=== PATIENT | female | born 1990 | race Caucasian/White ===

== ENCOUNTER 2016-09-17 05:33 | Inpatient (IN) | payer BC ==
--- NOTE | 2016-09-16 08:17 | PCM.LDHP ---
L&D History of Present Illness - General Date of Service: 09/16/16 Admit Problem/Dx: Admission Diagnosis/Problem Admission Diagnosis/Problem Source of Information: Patient History Limitations: Reports: No Limitations - History of Present Illness Introduction:: 26-year-old, G4, P2, 012. LUIS 09/22/16. Patient's estimated gestational age on Tuesday09/17/16 is 39 weeks 2 days. Patient is scheduled for repeat section having had 2 prior section. Group B strep negative. Patient has had no problems during this . Blood type A positive, antibody screen negative, on 03/09/16, hemoglobin, lack of 13.3, and 37.7, platelets 2, and 14,000. Rubella immune, nonreactive serology negative, hepatitis B surface antigen, GC and Chlamydia probes were negative. On . Hemoglobin, like a couple 637.2, platelet 174,001 hour OB glucose screen 136 3 hour glucose tolerance test fasting 80, one-hour 151, 2R, 125, 3 hour 71. All within normal range. Group B strep -08/26/16. Patient taking vitamins. No known drug allergies. Improves with: Reports: None Worsens with: Reports: None Associated Symptoms: Reports: N - Related Data Allergies/Adverse Reactions: Allergies Allergy/AdvReac Type Severity Reaction Status Date / Time No Known Allergies Allergy Verified 03/12/15 06:30 Home Medications: Home Meds Vit No.130/Iron/FA [ Tablet] 1 tab PO DAILY 03/12/15 [History] Acetaminophen [Tylenol] 650 mg PO Q6H PRN #50 tablet 03/14/15 [Rx] Acetaminophen/oxyCODONE [Percocet 325-5 MG] 1 tab PO Q6H PRN #20 tablet [Rx] Docusate Sodium [Colace] 100 mg PO Q12H PRN #50 cap 03/14/15 [Rx] Ibuprofen [Motrin] 200 - 800 mg PO Q6H PRN #50 tablet 03/14/15 [Rx] Lanolin [Lansinoh HPA] 1 applic TOP ASDIRECTED PRN #1 tube 03/14/15 [Rx] Simethicone 80 mg PO PCBED #50 tab.chew 03/14/15 [Rx] Past Medical History : 4 Para: 2 (2011) LMP (Approximate): Other OB/BYN History: Csection 2012 - Past Surgical History Other HEENT Surgeries/Procedures: Tonsillectomy 2009. Plastic Surgery on Ears 2004 Social & Family History - Tobacco Use Smoking Status *Q: Never Smoker Second Hand Smoke Exposure: No - Recreational Drug Use Recreational Drug Use: No H&P Review of Systems - Review of Systems: Review Of Systems: See Below General: Reports: No Symptoms HEENT: Reports: No Symptoms Pulmonary: Reports: No Symptoms Cardiovascular: Reports: No Symptoms Gastrointestinal: Reports: No Symptoms Genitourinary: Reports: No Symptoms Musculoskeletal: Reports: No Symptoms Skin: Reports: No Symptoms Psychiatric: Reports: No Symptoms Neurological: Reports: No Symptoms Hematologic/Lymphatic: Reports: No Symptoms Immunologic: Reports: No Symptoms L&D Exam - Exam Exam: See Below - Vital Signs Weight: 208 lb 6.4 oz - OB Specific Fundal Height In cm: 30 Movement: Active Heart Tones: Present Heart Tones per Min: 150 Heart Rate (FHR) Variability: Moderate (6-25 bmp) Presentation: Vertex Estimated Weight: 7.5 - Exam General: Alert, Oriented HEENT: Mucosa Moist & [address] Neck: Supple, Trachea Midline Lungs: Clear to Auscultation, Normal Respiratory Effort Cardiovascular: Regular Rate, Regular Rhythm Abdomen: Normal Bowel Sounds, Soft, Pelvis Stable Genitourinary: Normal external exam Back Exam: Normal Inspection, Full Range of Motion Extremities: Normal Inspection Skin: Warm, Dry, Intact Psychiatric: Alert, Normal Affect, Normal Mood - Problem List (1) 39 weeks gestation of SNOMED Code(s): 89378021 ICD Code: Z3A.39 - 39 WEEKS GESTATION OF Status: Acute Priority : High (2) Previous delivery affecting , antepartum SNOMED Code(s): 499570197, 797883066 ICD Code: O34.219 - MATERNAL CARE FOR UNSP TYPE SCAR FROM PREVIOUS DEL Status: Acute Priority: High Problem List Initiated/Reviewed/Updated: No Assessment/Plan Comment:: Plan repeat section for/
[~2016-09-17 05:33] MED LIST: Citric Acid/Sodium Citrate Solution 30 ML Cup PO ONE; Metoclopramide 10 MG/2 ML SDV IVPUSH ONE; Oxytocin/Lactated Ringers 10 UNIT/1,000 ML BAG IV SCH; Sodium Chloride 0.9% 10 ML Syringe FLUSH PRN; ceFAZolin 2 GM in Premix Bag 1 BAG IV ONE
[2016-09-17] MEDS ORDERED: Citric Acid/Sodium Citrate Solution 30 ML Cup ONE (05:47)
[2016-09-17] MEDS ORDERED: Metoclopramide 10 MG/2 ML SDV ONE (05:47)
[2016-09-17] MEDS: Lactated Ringers 1,000 ML IV SCH ×2 (06:15→06:50)
[2016-09-17] MEDS ORDERED: Bupivacaine 0.5% 30 ML SDV ONE (06:36)
[2016-09-17] MEDS ORDERED: Oxytocin 10 Units/1 ML SDV ONE (06:47)
[2016-09-17] MEDS ORDERED: Ondansetron 4 MG/2 ML SDV ONE ×2 (06:47→10:28)
[2016-09-17] MEDS ORDERED: ceFAZolin 1 GM Vial ONE ×2 (06:47→10:05)
[2016-09-17] MEDS ORDERED: Morphine PF 10 MG/10 ML SDV ONE (06:48)
[2016-09-17] MEDS ORDERED: Lactated Ringers 1,000 ML ONE ×2 (06:48→10:49)
--- NOTE | 2016-09-17 07:03 | PCM.PREANE ---
Preanesthetic Assessment - Procedure Proposed Procedure: section - Anesthesia/Transfusion/Family Hx Anesthesia History: Prior Anesthesia Reaction Type of Anesthesia Reaction: Excessive Nausea/Vomiting Family History of Anesthesia Reaction: No Transfusion History: No Prior Transfusion(s) - Review of Systems General: No Symptoms Pulmonary: No Symptoms Cardiovascular: No Symptoms Gastrointestinal: Other (Slight reflux) Neurological: No Symptoms Other: Reports: None - Physical Assessment NPO Status Date: 09/16/16 NPO Status Time: 23:00 Pulse: 86 O2 Sat by Pulse Oximetry: 82 Respiratory Rate: 16 Blood Pressure: 128/91 Temperature: 96.9 C Height: 1.57 m Weight: 91.626 kg ASA Class: 2 Mental Status: Alert & Oriented x3 Dentition: Reports: Normal Dentition Thyro-Mental Finger Breadths: 3 Mouth Opening Finger Breadths: 3 ROM/Head Extension: Full Lungs: Clear to auscultation, Normal respiratory effort Cardiovascular: Regular Rate, Regular Rhythm, No Murmurs - Lab Values: Laboratory Last Values WBC 11.31 K/mm3 (3.98-10.04) H 09/17/16 05:57 RBC 4.15 M/mm3 (3.98-5.22) 09/17/16 05:57 Hgb 12.6 gm/L (11.2-15.7) 09/17/16 05:57 Hct 37.0 % (34.1-44.9) 09/17/16 05:57 MCV 89.2 fl (79.4-94.8) 09/17/16 05:57 MCH 30.4 pg (25.6-32.2) 09/17/16 05:57 MCHC 34.1 g/dl (32.2-35.5) 09/17/16 05:57 RDW Std Deviation 43.5 fL (36.4-46.3) 09/17/16 05:57 Plt Count 173 K/mm3 (182-369) L 09/17/16 05:57 MPV 10.9 fl (9.4-12.3) 09/17/16 05:57 Neut % (Auto) 70.0 % (34.0-71.1) 09/17/16 05:57 Lymph % (Auto) 20.3 % (19.3-51.7) 09/17/16 05:57 [place] % (Auto) 7.3 % (4.7-12.5) 09/17/16 05:57 Eos % (Auto) 1.7 (0.7-5.8) 09/17/16 05:57 Baso % (Auto) 0.3 % (0.1-1.2) 09/17/16 05:57 Neut # (Auto) 7.93 K/mm3 (1.56-6.13) H 09/17/16 05:57 Lymph # (Auto) 2.30 K/mm3 (1.18-3.74) 09/17/16 05:57 [place] # (Auto) 0.82 K/mm3 (0.24-0.36) H 09/17/16 05:57 Eos # (Auto) 0.19 K/mm3 (0.04-0.36) 09/17/16 05:57 Baso # (Auto) 0.03 K/mm3 (0.01-0.08) 09/17/16 05:57 Lab values reviewed and ok to proceed with planned procedure - Allergies Allergies/Adverse Reactions: Allergies Allergy/AdvReac Type Severity Reaction Status Date / Time No Known Allergies Allergy Verified 09/17/16 06:51 - Acknowledgements Anesthesia Type Planned: Spinal Pt an Appropriate Candidate for the Planned Anesthesia: Yes Alternatives and Risks of Anesthesia Discussed w Pt/Guardian: Yes Pt/Guardian Understands and Agrees with Anesthesia Plan: Yes 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 Plastic Surgery on Ears 2004 - SUBSTANCE USE Smoking Status *Q: Never Smoker Second Hand Smoke Exposure: No Days Per Week of Alcohol Use: 0 Number of Drinks Per Day: 0 Total Drinks Per Week: 0 Recreational Drug Use History: No - HOME MEDS Home Medications: Home Meds Vit No.130/Iron/FA [ Tablet] 1 tab PO DAILY 03/12/15 [History] - CURRENT (IN HOUSE) MEDS Current Meds: Current Medications Lactated Ringer's (Ringers, Lactated) 1,000 mls @ 125 mls/hr IV ASDIRECTED GABINO Last Admin: 09/17/16 06:50 Dose: 125 mls/hr Oxytocin/Lactated Ringer's (Pitocin In Lr 10 Units/1,000 Ml) 10 unit in 1,000 mls @ 100 mls/hr IV ASDIRECTED GABINO Sodium Chloride (Saline Flush) 10 ml FLUSH ASDIRECTED PRN PRN Reason: Keep Vein Open Discontinued Medications Bupivacaine HCl (Marcaine 0.5%) Confirm Administered Dose 30 ml .ROUTE .STK-MED ONE Stop: 09/17/16 06:37 Cefazolin Sodium (Ancef) Confirm Administered Dose 2 gm .ROUTE .STK-MED ONE Stop: 09/17/16 06:48 Citric Acid/Sodium Citrate (Bicitra Solution) 30 ml PO ONETIME ONE Stop: 09/17/16 02:28 Last Admin: 09/17/16 06:54 Dose: 30 ml Citric Acid/Sodium Citrate (Bicitra Solution) Confirm Administered Dose 30 ml .ROUTE .STK-MED ONE Stop: 09/17/16 05:48 Cefazolin Sodium/Dextrose 2 gm (/ Premix) 50 mls @ 100 mls/hr IV ONETIME ONE Stop: 09/17/16 02:59 Lactated Ringer's (Ringers, Lactated) Confirm Administered Dose 1,000 mls @ as directed .ROUTE .STK-MED ONE Stop: 09/17/16 06:49 Metoclopramide HCl (Reglan) 10 mg IVPUSH ONETIME ONE Stop: 09/17/16 02:28 Last Admin: 09/17/16 06:53 Dose: 10 mg Metoclopramide HCl (Reglan) Confirm Administered Dose 10 mg .ROUTE .STK-MED ONE Stop: 09/17/16 05:48 Morphine Sulfate (Duramorph Pf) Confirm Administered Dose 10 mg .ROUTE .STK-MED ONE Stop: 09/17/16 06:49 Ondansetron HCl (Zofran) Confirm Administered Dose 4 mg .ROUTE .STK-MED ONE Stop: 09/17/16 06:48 Oxytocin (Pitocin) Confirm Administered Dose 20 unit .ROUTE .STK-MED ONE Stop: 09/17/16 06:48
[2016-09-17] MEDS ORDERED: Phenylephrine/Normal Saline 100 MCG/ML 10 ML Syringe ONE ×2 (08:00→10:21)
[2016-09-17] MEDS ORDERED: Ketorolac 30 MG/ML SDV ONE (08:18)
--- NOTE | 2016-09-17 08:22 | PCM.OPNOTE ---
- General Post-Op/Procedure Note Date of Surgery/Procedure: 09/17/16 Operative Procedure(s): Repeat low segment transverse 97829 Pre Op Diagnosis: 39+ weeks gestation, previous , x2 Post-Op Diagnosis: Same Anesthesia Technique: Spinal Primary Surgeon: Sixto Chandra Secondary Surgeon: Denny Arrieta Anesthesia Provider: Kalee Gilliland Lace Paper Machine Operator: Jennifer Graf (CRNAs) Fluid Replacement, Intraop: 1,700 Output, Urine Amount: 100 EBL in mLs: 300 Drain/Tube Comments:: Merino catheter to gravity drainage, closed system Complications: None Condition: Good Free Text/Narrative:: Patient was transported to operating room #1 and placed under spinal anesthesia in supine position with wedge under the right hip and right flank. Prepared and draped in sterile fashion including vaginal prep and abdominal prep timeout performed confirming name, date of , and procedures repeat section. SCDs in place and prepped, and prior surgery. Ancef 2 g given intravenously, prior surgery. Confirming adequate level of anesthesia, limbal brought to the operating room, injecting 20 mL of 0.5% Marcaine and area of the planned incision and incision made and carried sharp section to into the anterior fascia. The cavity entered without difficulty. Bladder flap created pushed caudad and a low segment transverse performed, very thin lower uterine segment. ( No window.) , Female live born at 0752 hours, weighing 6 pounds, 14 ounces. /9. , Dr. Schmidt . Hospital Plan Administrator, attended to the . Cord clamp. Cord blood collected. Placenta removed manually, and the nature cavity inspected. Sponge, needle, pack, and splint sharp count correct, times one. Uterine incision closed with running, locking suture of #0 Monocryl, followed by a Lembert imbricating suture of 0 Monocryl. Arterial bleeder on the left side, resutured with additional [id number] suture. No bleeding. At the end of the procedure. Both tubes and ovaries were normal. Clots cleaned from the gutters and cul-de-sac. Uterus replaced into the abdominal cavity. Incision inspected. No bleeding, and sponge, needle, pack, and splint sharp count correct, x2. The abdominal cavity was closed with running, locking suture of #1 PDS. Irrigation carried out on the subcutaneous tissue. Utilizing the electrocautery relaxing incisions made inferiorly and superiorly to relax. The skin incision and the skin was closed subcuticular 3- 0. Richy needle, and Preneo dermabond applied. Cleaned from the vagina. Urine clear, and yellow at, and procedure an. Patient transported post anesthesia care unit in satisfactory condition. No blood transfusions, required none are anticipated
[2016-09-17] MEDS ORDERED: Ondansetron 4 MG/2 ML SDV IVPUSH PRN (08:32)
[2016-09-17] MEDS ORDERED: diphenhydrAMINE 50 MG/ML SDV IVPUSH PRN (08:32)
[2016-09-17] MEDS ORDERED: Meperidine PF 50 MG/ML Syringe IM PRN (08:32)
--- NOTE | 2016-09-17 08:35 | PCM.POSTAN ---
POST ANESTHESIA ASSESSMENT - MENTAL STATUS Mental Status: alert, oriented - VITAL SIGNS Pulse Rate: 82 SaO2: 98 Resp Rate: 22 Blood Pressure: 131/87 Temperature: 37.1 C - RESPIRATORY Respiratory Status: respiratory rate WNL, airway patent - CARDIOVASCULAR CV Status: pulse rate WNL, blood pressure stable - GASTROINTESTINAL GI Status: no symptoms - PAIN Pain Score: 0 - POST OP HYDRATION Hydration Status: adequate & stable
[2016-09-17] MEDS ORDERED: Naloxone 0.4 MG/ML SDV IVPUSH PRN (11:38)
[2016-09-17] MEDS ORDERED: Lanolin 100% Cream 7 GM Tube TOP PRN (11:38)
[2016-09-17] MEDS ORDERED: ePHEDrine 50 MG/ML SDV IVPUSH PRN (11:38)
[2016-09-17] MEDS ORDERED: Acetaminophen 325 MG Tab PO PRN (11:38)
[2016-09-17] MEDS ORDERED: Docusate Sodium 100 MG Cap PO PRN (11:38)
[2016-09-17] MEDS ORDERED: Dextrose 5%-0.45% NaCl 1,000 ML IV SCH (11:45)
[2016-09-17] MEDS ORDERED: Dextrose 5%-Lactated Ringers 1,000 ML IV SCH (11:45)
[2016-09-17] MEDS: Ketorolac 30 MG/ML SDV IVPUSH SCH ×2 (14:29→20:25)
[2016-09-18] MEDS: Ketorolac 30 MG/ML SDV IVPUSH SCH (02:04)
[2016-09-18] MEDS ORDERED: Ibuprofen 600 MG Tab PO PRN (08:00)
[2016-09-18] MEDS: Acetaminophen/oxyCODONE 325-5 MG Tab PO PRN ×3 (10:35→20:37)
--- NOTE | 2016-09-18 11:01 | PCM.SN ---
- Free Text/Narrative Note: PPD#1 Afebrile, no heavy vaginal bleeding, incision healing normally, no leg cramps. Ambulating
[2016-09-19] MEDS: Acetaminophen/oxyCODONE 325-5 MG Tab PO PRN ×2 (03:47→11:18)
[2016-09-19] MEDS: Labetalol 100 MG Tab PO SCH ×2 (04:41→08:30)
[2016-09-19 07:47] VITALS: BP 132/78
--- NOTE | 2016-09-19 10:06 | PCM.DCSUM1 ---
Discharge Summary - Hospital Course Free Text/Narrative:: [facility] Post-Op/Procedure Note Patient Name: EMANUEL MASTERS Date of : 89 Patient Status: Inpatient Attending Provider: Sixto Chandra Date: 09/17/16 08:16 Initialization Date: 09/17/16 08:16 - General Post-Op/Procedure Note Date of Surgery/Procedure: 09/17/16 Operative Procedure(s): Repeat low segment transverse 42349 Pre Op Diagnosis: 39+ weeks gestation, previous , x2 Post-Op Diagnosis: Same Anesthesia Technique: Spinal Primary Surgeon: Sixto Chandra Secondary Surgeon: Denny Arrieta Anesthesia Provider: Kalee Gilliland Chop Saw Operator: Jennifer Graf (CRNAs) Fluid Replacement, Intraop: 1,700 Output, Urine Amount: 100 EBL in mLs: 300 Drain/Tube Comments:: Merino catheter to gravity drainage, closed system Complications: None Condition: Good Free Text/Narrative:: Patient was transported to operating room #1 and placed under spinal anesthesia in supine position with wedge under the right hip and right flank. Prepared and draped in sterile fashion including vaginal prep and abdominal prep timeout performed confirming name, date of , and procedures repeat section. SCDs in place and prepped, and prior surgery. Ancef 2 g given intravenously, prior surgery. Confirming adequate level of anesthesia, limbal brought to the operating room, injecting 20 mL of 0.5% Marcaine and area of the planned incision and incision made and carried sharp section to into the anterior fascia. The cavity entered without difficulty. Bladder flap created pushed caudad and a low segment transverse performed, very thin lower uterine segment. ( No window.) , Female live born at 0752 hours, weighing 6 pounds, 14 ounces. 01/01. , Dr. Schmidt . Transition Coach, attended to the . Cord clamp. Cord blood collected. Placenta removed manually, and the nature cavity inspected. Sponge, needle, pack, and splint sharp count correct, times one. Uterine incision closed with running, locking suture of #0 Monocryl, followed by a Lembert imbricating suture of 0 Monocryl. Arterial bleeder on the left side, resutured with additional [id number] suture. No bleeding. At the end of the procedure. Both tubes and ovaries were normal. Clots cleaned from the gutters and cul-de-sac. Uterus replaced into the abdominal cavity. Incision inspected. No bleeding, and sponge, needle, pack, and splint sharp count correct, x2. The abdominal cavity was closed with running, locking suture of #1 PDS. Irrigation carried out on the subcutaneous tissue. Utilizing the electrocautery relaxing incisions made inferiorly and superiorly to relax. The skin incision and the skin was closed subcuticular 3- 0. Richy needle, and Preneo dermabond applied. Cleaned from the vagina. Urine clear, and yellow at, and procedure an. Patient transported post anesthesia care unit in satisfactory condition. No blood transfusions, required none are anticipated HPI Initial Comments: [facility] Post-Op/Procedure Note Patient Name: EMANUEL MASTERS Date of : 89 Patient Status: Inpatient Attending Provider: Sixto Chandra Date: 09/17/16 08:16 Initialization Date: 09/17/16 08:16 - General Post-Op/Procedure Note Date of Surgery/Procedure: 09/17/16 Operative Procedure(s): Repeat low segment transverse 56236 Pre Op Diagnosis: 39+ weeks gestation, previous , x2 Post-Op Diagnosis: Same Anesthesia Technique: Spinal Primary Surgeon: Sixto Chandra Secondary Surgeon: Denny Arrieta Anesthesia Provider: Kalee Gilliland Chop Saw Operator: Jennifer Graf (CRNAs) Fluid Replacement, Intraop: 1,700 Output, Urine Amount: 100 EBL in mLs: 300 Drain/Tube Comments:: Merino catheter to gravity drainage, closed system Complications: None Condition: Good Free Text/Narrative:: Patient was transported to operating room #1 and placed under spinal anesthesia in supine position with wedge under the right hip and right flank. Prepared and draped in sterile fashion including vaginal prep and abdominal prep timeout performed confirming name, date of , and procedures repeat section. SCDs in place and prepped, and prior surgery. Ancef 2 g given intravenously, prior surgery. Confirming adequate level of anesthesia, limbal brought to the operating room, injecting 20 mL of 0.5% Marcaine and area of the planned incision and incision made and carried sharp section to into the anterior fascia. The cavity entered without difficulty. Bladder flap created pushed caudad and a low segment transverse performed, very thin lower uterine segment. ( No window.) , Female live born at 0752 hours, weighing 6 pounds, 14 ounces. 01/01. , Dr. Schmidt . Transition Coach, attended to the . Cord clamp. Cord blood collected. Placenta removed manually, and the nature cavity inspected. Sponge, needle, pack, and splint sharp count correct, times one. Uterine incision closed with running, locking suture of #0 Monocryl, followed by a Lembert imbricating suture of 0 Monocryl. Arterial bleeder on the left side, resutured with additional [id number] suture. No bleeding. At the end of the procedure. Both tubes and ovaries were normal. Clots cleaned from the gutters and cul-de-sac. Uterus replaced into the abdominal cavity. Incision inspected. No bleeding, and sponge, needle, pack, and splint sharp count correct, x2. The abdominal cavity was closed with running, locking suture of #1 PDS. Irrigation carried out on the subcutaneous tissue. Utilizing the electrocautery relaxing incisions made inferiorly and superiorly to relax. The skin incision and the skin was closed subcuticular 3- 0. Richy needle, and Preneo dermabond applied. Cleaned from the vagina. Urine clear, and yellow at, and procedure an. Patient transported post anesthesia care unit in satisfactory condition. No blood transfusions, required none are anticipated Brief History: [facility] . Post-Op/Procedure Note. Patient Name: EMANUEL MASTERS [facility] Record Number: [id number]. Date of : Patient Status: Inpatient. Attending Provider: Sixto Chandra Number: [id number]. Date: 09/17/16 08:16Initialization Date: 09/17/16 08:16. - General Post-Op/Procedure Note. Date of Surgery/Procedure: 09/17/16. Operative Procedure(s): Repeat low segment transverse 69282. Pre Op Diagnosis: 39+ weeks gestation, previous , x2. Post-Op Diagnosis: Same. Anesthesia Technique: Spinal. Primary Surgeon: Sixto Chandra. Secondary Surgeon: Denny Arrieta. Anesthesia Provider: Kalee Gilliland. Chop Saw Operator: Jennifer Graf (CRNAs). Fluid Replacement, Intraop: 1,700. Output, Urine Amount: 100. EBL in mLs: 300. Drain/Tube Comments:: Merino catheter to gravity drainage, closed system. Complications: None. Condition: Good. Free Text/Narrative:: Patient was transported to operating room #1 and placed under spinal anesthesia in supine position with wedge under the right hip and right flank. Prepared and draped in sterile fashion including vaginal prep and abdominal prep timeout performed confirming name, date of , and procedures repeat section. SCDs in place and prepped, and prior surgery. Ancef 2 g given intravenously, prior surgery. Confirming adequate level of anesthesia , limbal brought to the operating room, injecting 20 mL of 0.5% Marcaine and area of the planned incision and incision made and carried sharp section to into the anterior fascia. The cavity entered without difficulty. Bladder flap created pushed caudad and a low segment transverse performed, very thin lower uterine segment. ( No window.) , Female live born at 0752 hours, weighing 6 pounds, 14 ounces. 01/01. , Dr. Schmidt . Transition Coach, attended to the . Cord clamp. Cord blood collected. Placenta removed manually, and the nature cavity inspected. Sponge, needle, pack, and splint sharp count correct, times one. Uterine incision closed with running, locking suture of #0 Monocryl, followed by a Lembert imbricating suture of 0 Monocryl. Arterial bleeder on the left side, resutured with additional [id number] suture. No bleeding. At the end of the procedure. Both tubes and ovaries were normal. Clots cleaned from the gutters and cul-de-sac. Uterus replaced into the abdominal cavity. Incision inspected. No bleeding, and sponge, needle, pack, and splint sharp count correct, x2. The abdominal cavity was closed with running, locking suture of #1 PDS. Irrigation carried out on the subcutaneous tissue. Utilizing the electrocautery relaxing incisions made inferiorly and superiorly to relax. The skin incision and the skin was closed subcuticular 3- 0. Richy needle, and Preneo dermabond applied. Cleaned from the vagina. Urine clear, and yellow at, and procedure an. Patient transported post anesthesia care unit in satisfactory condition. No blood transfusions, required none are anticipated - Discharge Data Discharge Date: 09/19/16 Discharge Disposition: Home, Self-Care 01 Condition: Good - Discharge Diagnosis/Problem(s) (1) 39 weeks gestation of SNOMED Code(s): 02022745 ICD Code: Z3A.39 - 39 WEEKS GESTATION OF Status: Acute Priority : High Current Visit: Yes (2) Previous delivery affecting , antepartum SNOMED Code(s): 271626786, 221488897 ICD Code: O34.219 - MATERNAL CARE FOR UNSP TYPE SCAR FROM PREVIOUS DEL Status: Acute Priority: High Current Visit: No (3) Hypertension, condition or complication SNOMED Code(s): 41899669, 335646527 ICD Code: O16.5 - UNSPECIFIED MATERNAL HYPERTENSION, COMP THE PUERPERIUM Status: Acute Current Visit: Yes - Patient Summary/Data Operative Procedure(s) Performed: Repeat low segment transverse 59662 Complications: none Consults: none Hospital Course: uneventful - Patient Instructions Diet: Heart Healthy Diet Driving: Do Not Drive (x4 weeks) Showering/Bathing: May Shower, No Tub Bathing/Swimming (x6 weeks) Wound/Incision Care: Keep Operative Site/Wound Site Clean and Dry Notify Provider of: Fever, Increased Pain, Swelling and Redness, Drainage, Nausea and/or Vomiting - Discharge Plan Prescriptions/Med Rec: Labetalol [Normodyne] 100 mg PO BID #60 tablet Home Medications: Home Meds Vit No.130/Iron/FA [ Tablet] 1 tab PO DAILY 03/12/15 [History] Acetaminophen [Tylenol] 650 mg PO Q6H PRN #0 tablet 09/19/16 [Rx] Docusate Sodium [Colace] 100 mg PO Q12H PRN #0 cap 09/19/16 [Rx] Ibuprofen [IJD: Ibuprofen] 200 - 600 mg PO Q6H PRN #0 tablet 09/19/16 [Rx] Labetalol [Normodyne] 100 mg PO BID #60 tablet 09/19/16 [Rx] Referrals: Sixto Chandra MD [Physician] - (4 weeks RTC) - Discharge Summary/Plan Comment DC Time >30 min.: No - Patient Data Vitals - Most Recent: Last Vital Signs Temp 97.7 F 09/19/16 07:40 Pulse 88 09/19/16 08:30 Resp 16 09/19/16 07:40 BP 132/78 09/19/16 08:30 Pulse Ox 99 09/19/16 07:40 Weight - Most Recent: 202 lb I&O - Last 24 hours: Intake & Output 09/18/16 09/19/16 09/19/16 22:59 06:59 14:59 Intake Total 0 Balance 0 Med Orders - Current: Current Medications Acetaminophen (Tylenol) 650 mg PO Q4H PRN PRN Reason: mild pain or fever Diphenhydramine HCl (Benadryl) 25 mg IVPUSH Q6H PRN PRN Reason: pruritis Docusate Sodium (Colace) 100 mg PO Q12H PRN PRN Reason: Constipation Last Admin: 09/19/16 08:33 Dose: 100 mg Emollient Ointment (Lansinoh Hpa) 0 gm TOP ASDIRECTED PRN PRN Reason: Sore Nipples Ephedrine Sulfate (Ephedrine Sulfate) 5 mg IVPUSH SEECOMMENT PRN PRN Reason: Other Lactated Ringer's (Ringers, Lactated) 1,000 mls @ 125 mls/hr IV ASDIRECTED [facility] Last Admin: 09/17/16 06:50 Dose: 125 mls/hr Oxytocin/Lactated Ringer's (Pitocin In Lr 10 Units/1,000 Ml) 10 unit in 1,000 mls @ 100 mls/hr IV ASDIRECTED [facility] Dextrose/Sodium Chloride (Dextrose 5%-1/2 Ns) 1,000 mls @ 125 mls/hr IV ASDIRECTED [facility] Ibuprofen (Motrin) 600 mg PO Q6H PRN PRN Reason: mild pain or fever Labetalol HCl (Normodyne) 100 mg PO BID [facility] Last Admin: 09/19/16 08:30 Dose: 100 mg Naloxone HCl (Narcan) 0.1 mg IVPUSH SEECOMMENT PRN PRN Reason: Respiratory Depression Ondansetron HCl (Zofran) 4 mg IVPUSH ONETIME PRN PRN Reason: Nausea/Vomiting Oxycodone/Acetaminophen (Percocet 325-5 Mg) 2 tab PO Q4H PRN PRN Reason: Pain (moderate 4-6) Last Admin: 09/19/16 03:47 Dose: 2 tab Sodium Chloride (Saline Flush) 10 ml FLUSH ASDIRECTED PRN PRN Reason: Keep Vein Open Discontinued Medications Bupivacaine HCl (Marcaine 0.5%) Confirm Administered Dose 30 ml .ROUTE .STK-MED ONE Stop: 09/17/16 06:37 Last Admin: 09/17/16 07:48 Dose: 20 ml Cefazolin Sodium (Ancef) Confirm Administered Dose 2 gm .ROUTE .STK-MED ONE Stop: 09/17/16 06:48 Cefazolin Sodium (Ancef) Confirm Administered Dose 2 gm .ROUTE .STK-MED ONE Stop: 09/17/16 10:06 Citric Acid/Sodium Citrate (Bicitra Solution) 30 ml PO ONETIME ONE Stop: 09/17/16 02:28 Last Admin: 09/17/16 06:54 Dose: 30 ml Citric Acid/Sodium Citrate (Bicitra Solution) Confirm Administered Dose 30 ml .ROUTE .STK-MED ONE Stop: 09/17/16 05:48 Last Admin: 09/17/16 09:52 Dose: Not Given Cefazolin Sodium/Dextrose 2 gm (/ Premix) 50 mls @ 100 mls/hr IV ONETIME ONE Stop: 09/17/16 02:59 Last Admin: 09/17/16 10:42 Dose: Not Given Lactated Ringer's (Ringers, Lactated) Confirm Administered Dose 1,000 mls @ as directed .ROUTE .STK-MED ONE Stop: 09/17/16 06:49 Lactated Ringer's (Ringers, Lactated) Confirm Administered Dose 1,000 mls @ as directed .ROUTE .STK-MED ONE Stop: 09/17/16 10:50 Dextrose/Lactated Ringer's (Dextrose 5%-Lactated Ringers) 1,000 mls @ 125 mls/ hr IV ASDIRECTED GABINO Stop: 09/17/16 19:44 Last Admin: 09/17/16 14:30 Dose: 125 mls/hr Ketorolac Tromethamine (Toradol) Confirm Administered Dose 30 mg .ROUTE .STK- MED ONE Stop: 09/17/16 08:19 Ketorolac Tromethamine (Toradol) 30 mg IVPUSH Q6H GABINO Stop: 09/18/16 02:01 Last Admin: 09/18/16 02:04 Dose: 30 mg Meperidine HCl (Demerol) 50 mg IM Q6H PRN PRN Reason: Pain Metoclopramide HCl (Reglan) 10 mg IVPUSH ONETIME ONE Stop: 09/17/16 02:28 Last Admin: 09/17/16 06:53 Dose: 10 mg Metoclopramide HCl (Reglan) Confirm Administered Dose 10 mg .ROUTE .STK-MED ONE Stop: 09/17/16 05:48 Last Admin: 09/17/16 09:52 Dose: Not Given Morphine Sulfate (Duramorph Pf) Confirm Administered Dose 10 mg .ROUTE .STK-MED ONE Stop: 09/17/16 06:49 Ondansetron HCl (Zofran) Confirm Administered Dose 4 mg .ROUTE .STK-MED ONE Stop: 09/17/16 06:48 Ondansetron HCl (Zofran) Confirm Administered Dose 4 mg .ROUTE .STK-MED ONE Stop: 09/17/16 10:29 Oxytocin (Pitocin) Confirm Administered Dose 20 unit .ROUTE .STK-MED ONE Stop: 09/17/16 06:48 Phenylephrine HCl (Phenylephrine In Ns 100 Mcg/Ml) Confirm Administered Dose 1 mg .ROUTE .STK-MED ONE Stop: 09/17/16 08:01 Phenylephrine HCl (Phenylephrine In Ns 100 Mcg/Ml) Confirm Administered Dose 1 mg .ROUTE .STK-MED ONE Stop: 09/17/16 10:22 *Q Meaningful Use (DIS) - VTE *Q VTE Criteria *Q: - Stroke *Q Stroke Criteria *Q: - AMI *Q AMI Criteria *Q:
== END 2016-09-19 11:25 | disposition home or self-care (01) | DRG 540 ==
LOC: JD.OB 05:33
PROVIDERS: ADMIT Obstetrics & Gynecology; ATTEND Obstetrics & Gynecology
PROC: 10D00Z1 Extraction of Products of Conception, Low, Open Approach (ICD-10-PCS; principal; 2016-09-17)
DX: O34.211 Maternal care for low transverse scar from previous cesarean delivery (principal); N85.8 Other specified noninflammatory disorders of uterus; Z3A.39 39 weeks gestation of pregnancy; Z37.0 Single live birth
CPT/HCPCS: 01961; 36415; 85025; 86850; 86900; 86901; 94762; A9270-GY; J0690; J1885; J2270; J2405; J2590; J2765; J7042; J7120

== ENCOUNTER 2017-12-07 16:30 | Emergency (ER) | payer BC ==
[2017-12-07 16:45] VITALS: BP 129/82
[2017-12-07] MEDS ORDERED: Sodium Chloride 0.9% 10 ML Syringe FLUSH PRN (17:12)
[2017-12-07] MEDS ORDERED: Sodium Chloride 0.9% 500 ML IV ONE (17:12)
[2017-12-07] MEDS ORDERED: Acetaminophen 325 MG Tab PO ONE (17:13)
--- NOTE | 2017-12-07 19:06 | EDM.PDOC ---
ED HPI GENERAL MEDICAL PROBLEM - General Chief Complaint: Abdominal Pain Stated Complaint: ABD PAIN Time Seen by Provider: 12/07/17 16:48 Source of Information: Reports: Patient, RN Notes Reviewed - History of Present Illness INITIAL COMMENTS - FREE TEXT/NARRATIVE: 27-year-old female comes in with left-sided abdominal and pelvic discomfort. She had acute onset of this pain about 2 hours ago. Pain is achy and does radiate to the back. There's been some fluctuation in intensity but has not gone away at any time. I'll somewhat better than at home prior to coming in but still moderately severe. She did have some very mild nausea but no vomiting. There's been no diarrhea and she is not constipated. She does have 3 children, her youngest about one year of age. Last menstrual period about 2 weeks ago. No bleeding or spotting at this time. No fever chills or voiding symptomatology. Left Lower Abdomen Pain Score (Numeric/FACES): 6 - Related Data Allergies Allergy/AdvReac Type Severity Reaction Status Date / Time No Known Allergies Allergy Verified 12/07/17 16:45 Home Meds: Home Meds . 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 Plastic Surgery on Ears 2004 Social & Family History - Tobacco Use Smoking Status *Q: Current Every Day Smoker Years of Tobacco use: 5 Packs/Tins Daily: 0.1 - Caffeine Use Caffeine Use: Reports: Coffee, Soda - Recreational Drug Use Recreational Drug Use: No ED ROS GENERAL - Review of Systems Review Of Systems: See Below Constitutional: Denies: Fever, Chills HEENT: Denies: Sinus Problem, Throat Pain Respiratory: Denies: Shortness of Breath, Wheezing Cardiovascular: Denies: Chest Pain GI/Abdominal: Reports: Abdominal Pain, Nausea (Left lower abdomen gone). Denies : Constipation, Diarrhea, Vomiting Musculoskeletal: Reports: No Symptoms Skin: Reports: No Symptoms Neurological: Reports: No Symptoms ED EXAM, GI/ABD - Physical Exam Exam: See Below General Appearance: Alert, No Apparent Distress Eyes: Bilateral: Normal Appearance Throat/Mouth: Normal Inspection, Normal Oropharynx Head: Atraumatic Neck: Supple Respiratory/Chest: No Respiratory Distress, Lungs Clear, Normal Breath Sounds Cardiovascular: Regular Rate, Rhythm GI/Abdominal Exam: Tender (Mild tenderness left lower abdomen and pelvis). No: Guarding, Rebound Back Exam: CVA Tenderness (L) (Mild). No: CVA Tenderness (R) Extremities: Normal Inspection, Normal Range of Motion Neurological: Alert, Oriented, No Motor/Sensory Deficits Skin Exam: Warm, Dry, Normal Color Course - Vital Signs Last Recorded V/S: Last Vital Signs Temp 98.2 F 12/07/17 16:43 Pulse 69 12/07/17 16:43 Resp 16 12/07/17 16:43 BP 129/82 12/07/17 16:43 Pulse Ox 98 12/07/17 16:43 - Orders/Labs/Meds Orders: Active Orders 24 hr Category Date Time Status Peripheral IV Care [RC] . DIRECTED Care 12/07/17 17:12 Active Pelvis Non OB Ltd [US] Stat Exams 12/07/17 17:13 Taken UA W/MICROSCOPIC [URIN] Stat Lab 12/07/17 19:18 Ordered Sodium Chloride 0.9% [Saline Flush] Med 12/07/17 17:12 Active 10 ml FLUSH ASDIRECTED PRN Peripheral IV Insertion Adult [OM.PC] Stat Oth 12/07/17 17:12 Ordered Medication Orders Sodium Chloride (Saline Flush) 10 ml FLUSH ASDIRECTED PRN PRN Reason: Keep Vein Open Last Admin: 12/07/17 17:28 Dose: 10 ml Labs: Laboratory Tests 12/07/17 12/07/17 12/07/17 Range/Units 17:25 17:25 17:25 WBC 10.38 H (3.98-10.04) K/mm3 RBC 4.81 (3.98-5.22) M/mm3 Hgb 14.6 (11.2-15.7) gm/L Hct 43.5 (34.1-44.9) % MCV 90.4 (79.4-94.8) fl MCH 30.4 (25.6-32.2) pg MCHC 33.6 (32.2-35.5) g/dl RDW Std Deviation 39.8 (36.4-46.3) fL Plt Count 217 (182-369) K/mm3 MPV 9.9 (9.4-12.3) fl Neut % (Auto) 78.3 H (34.0-71.1) % Lymph % (Auto) 14.1 L (19.3-51.7) % [place] % (Auto) 5.0 (4.7-12.5) % Eos % (Auto) 2.1 (0.7-5.8) Baso % (Auto) 0.3 (0.1-1.2) % Neut # (Auto) 8.13 H (1.56-6.13) K/mm3 Lymph # (Auto) 1.46 (1.18-3.74) K/mm3 [place] # (Auto) 0.52 H (0.24-0.36) K/mm3 Eos # (Auto) 0.22 (0.04-0.36) K/mm3 Baso # (Auto) 0.03 (0.01-0.08) K/mm3 Sodium 138 (136-145) mEq/L Potassium 4.4 (3.5-5.1) mEq/L Chloride 102 (98-107) mEq/L Carbon Dioxide 25 (21-32) mEq/L Anion Gap 15.4 H (5-15) BUN 16 (7-18) mg/dL Creatinine 0.7 (0.55-1.02) mg/dL Est Cr Clr Drug Dosing 97.17 mL/min Estimated GFR (MDRD) > 60 (>60) mL/min BUN/Creatinine Ratio 22.9 H (14-18) Glucose 83 (74-106) mg/dL Calcium 8.9 (8.5-10.1) mg/dL Total Bilirubin 0.2 (0.2-1.0) mg/dL AST 18 (15-37) U/L ALT 19 (14-59) U/L Alkaline Phosphatase 74 (46-116) U/L C-Reactive Protein 0.8 (<1.0) mg/dL Total Protein 7.7 (6.4-8.2) g/dl Albumin 4.2 (3.4-5.0) g/dl Globulin 3.5 gm/dL Albumin/Globulin Ratio 1.2 (1-2) HCG, Qual Negative (NEGATIVE) Meds: Medications Generic Name Dose Route Start Last Admin Trade Name Freq PRN Reason Stop Dose Admin Sodium Chloride 10 ml 12/07/17 17:12 12/07/17 17:28 Saline Flush FLUSH 10 ml ASDIRECTED PRN Administration Keep Vein Open Discontinued Medications Generic Name Dose Route Start Last Admin Trade Name Enoch PRN Reason Stop Dose Admin Acetaminophen 975 mg 12/07/17 17:13 12/07/17 17:29 Tylenol PO 12/07/17 17:14 975 mg NOW ONE Administration Sodium Chloride 500 mls @ 999 mls/hr 12/07/17 17:12 12/07/17 17:28 Normal Saline IV 12/07/17 17:42 999 mls/hr .BOLUS ONE Administration - Re-Assessments/Exams Free Text/Narrative Re-Assessment/Exam: 12/07/17 19:28 Pelvic ultrasound did come back negative with no acute findings, white blood count high range of normal. Her discomfort has improved. Pain is almost gone at this time. I missed getting a UA order in with her initial labs. Avoid for us now. I will call her if that does come back positive to where she would need an antibiotic. Departure - Departure Time of Disposition: 19:23 Disposition: Home, Self-Care 01 Condition: Fair Clinical Impression: Pelvic pain Abdominal pain Qualifiers: Abdominal location: left lower quadrant Qualified Code(s): R10.32 - Left lower quadrant pain - Discharge Information Referrals: PCP,None [Primary Care Provider] - Forms: ED Department Discharge Additional Instructions: Pelvic ultrasound today was negative for any acute pelvic findings. White blood count was at the high range of normal. Urinalysis pending. I'll call you this evening if that does show a bladder infection and would then also call in an antibiotic for you. If I do not call this evening that means the urine was negative for infection. The discomfort you are having should continue to improve and resolve over the next 2-3 days. You may alternate Tylenol and ibuprofen as needed. Follow-up clinic if symptoms not resolving as expected or return to ED as needed symptoms worsening in any way. - My Orders Last 24 Hours: My Active Orders 12/07/17 17:12 Peripheral IV Care [RC] . DIRECTED Sodium Chloride 0.9% [Saline Flush] 10 ml FLUSH ASDIRECTED PRN Peripheral IV Insertion Adult [OM.PC] Stat 12/07/17 17:13 Pelvis Non OB Ltd [US] Stat 12/07/17 19:18 UA W/MICROSCOPIC [URIN] Stat - Assessment/Plan Last 24 Hours: My Active Orders 12/07/17 17:12 Peripheral IV Care [RC] . DIRECTED Sodium Chloride 0.9% [Saline Flush] 10 ml FLUSH ASDIRECTED PRN Peripheral IV Insertion Adult [OM.PC] Stat 12/07/17 17:13 Pelvis Non OB Ltd [US] Stat 12/07/17 19:18 UA W/MICROSCOPIC [URIN] Stat
--- NOTE | 2017-12-08 13:31 | US ---
Pelvic ultrasound: Multiple real-time images were obtained transvaginally. Comparison: No prior pelvic ultrasound is available. Findings: Uterus is anteverted. Small cystic area is seen in a subendometrial location within the lower uterine segment measuring 5 mm which is felt to be incidental. Incidental nabothian cysts are seen. Endometrial thickness is 1.8 cm. Right and left ovaries appear within normal limits. No free fluid is seen. Measurements: Uterus: Length 8.2 cm, AP height 3.9 cm, transverse width 5.1 cm Right ovary: 2.8 x 1.9 x 2.0 cm Left ovary: 3.7 x 2.8 x 2.7 cm Impression: 1. Incidental findings. Nothing acute is seen. Diagnostic code #2 I agree with preliminary report issued by [employer] ([employer] report finalized on 12/07/17, 8:02 PM Central Time)
== END 2017-12-07 19:30 | disposition home or self-care (01) ==
LOC: JD.ED 16:30
DX: R10.2 Pelvic and perineal pain (principal); R10.32 Left lower quadrant pain; F17.210 Nicotine dependence, cigarettes, uncomplicated
CPT/HCPCS: 36415; 76857; 80053; 81001; 84703; 85025; 86140; 96360; 96361; 99284; A9270; J7040; J7050

== ENCOUNTER 2022-01-08 08:51 | Emergency (ER) | payer BC ==
[2022-01-08] MEDS ORDERED: Metoclopramide 10 MG/2 ML SDV IVPUSH ONE (09:50)
[2022-01-08] MEDS ORDERED: HYDROmorphone 0.5 MG/0.5 ML Syringe IVPUSH ONE ×2 (09:50→12:39)
[2022-01-08] MEDS ORDERED: Ketorolac 30 MG/ML SDV IVPUSH SCH (10:00)
[2022-01-08] MEDS ORDERED: Sodium Chloride 0.9% 1,000 ML IV SCH (10:00)
[2022-01-08] MEDS ORDERED: Ondansetron 4 MG/2 ML SDV IVPUSH ONE (12:24)
[2022-01-08] MEDS ORDERED: Ketorolac 30 MG/ML SDV IVPUSH ONE (12:47)
[2022-01-08 13:08] VITALS: BP 123/82; PULSE 83
== END 2022-01-08 13:08 | disposition home or self-care (01) ==
LOC: JD.ED 08:51
DX: N23 Unspecified renal colic (principal); R11.14 Bilious vomiting
CPT/HCPCS: 74176; 81001; 96361; 96374; 96375; 96376; 99284; J1170; J1885; J2405; J2765; J7030